=== PATIENT | female | born 1995 | race African-American/Black ===

== ENCOUNTER 2017-04-03 19:41 | Observation (INO) | payer MEDICAID ==
[~2017-04-03] VITALS: Ht 157.5 cm; Wt 71.7 kg
== END 2017-04-03 20:40 | disposition home or self-care (01) ==
LOC: L&D 19:41
PROVIDERS: ADMIT Obstetrics & Gynecology; ATTEND Obstetrics & Gynecology
DX: O26.893 Other specified pregnancy related conditions, third trimester (principal); R10.30 Lower abdominal pain, unspecified; Z3A.39 39 weeks gestation of pregnancy
CPT/HCPCS: 99281; G0378

== ENCOUNTER 2017-04-05 15:27 | Observation (INO) | payer MEDICAID ==
[~2017-04-05] VITALS: Ht 157.5 cm; Wt 72.1 kg
== END 2017-04-05 16:50 | disposition home or self-care (01) ==
LOC: L&D 15:27
PROVIDERS: ADMIT Obstetrics & Gynecology; ATTEND Obstetrics & Gynecology
DX: O26.893 Other specified pregnancy related conditions, third trimester (principal); M54.5 Low back pain; Z3A.39 39 weeks gestation of pregnancy
CPT/HCPCS: 99281; G0378